=== PATIENT | male | born 1955 | race Caucasian/White ===

== ENCOUNTER 2024-01-13 17:56 | Emergency (ER) | payer OTHER ==
[~2024-01-13] VITALS: Ht 170.2 cm; Wt 69.9 kg
[2024-01-13] MEDS ORDERED: WARF1TAB2 (18:31)
[2024-01-13 20:06] VITALS: BP 118/72; TEMP 98; O2SAT 99
== END 2024-01-13 20:07 | disposition home or self-care (01) ==
LOC: ER 17:57
DX: S63.592A Other specified sprain of left wrist, initial encounter (principal); Z79.899 Other long term (current) drug therapy; X58.XXXA Exposure to other specified factors, initial encounter; Y93.89 Activity, other specified; Y92.89 Other specified places as the place of occurrence of the external cause; Y99.8 Other external cause status
CPT/HCPCS: 73090; 73130; A4606; A4663